=== PATIENT | female | born 1935 | race Caucasian/White ===

== ENCOUNTER 2016-08-31 14:38 | Inpatient (IN) | payer OTHER ==
[~2016-08-31] VITALS: Ht 167.6 cm; Wt 103.5 kg
[~2016-08-31 14:38] MED LIST: ACTOS15 MG PO; ACTOS30 MG PO; ADVAIR 250/501 DISK IH; ASPIRIN325 MG PO; ASTEPRO 0.15%30 ML BOTH NARES; Ambien PO; Astelin, Astepro 0.1 BOTH NARES; BENAZEPRIL HCL20 MG PO; CARDIZEM120 MG PO; CARDIZEM30 MG PO; CEFTIN250 MG PO; CIPRO500 MG PO; COLACE100 MG PO; CYMBALTA60 MG PO; Catapres PO; Cortaid,Hytone 1% Cr TP; Cymbalta PO; DAILY VALUE1 EACH PO; DILTIAZEM 24HR240 MG PO; DITROPAN XL5 MG PO; DOCUSATE SODIU100 MG PO; Ditropan PO; DuoNeb IH; ENABLEX7.5 MG PO; FUROSEMIDE20 MG PO; GLUCAGEN1 MG IM/SC; KLOR-CON M2020 MEQ PO; LANTUS 10100 UNITS/ SC; LANTUS 3 M100 UNITS/ SC; LANTUS 3 M100 UNITS1 SC; LASIX20 MG PO; LIDODERM 5% P1 PATCH TD; LOPRESSOR100 M1 PO; LOPRESSOR25 MG PO; LOTENSIN20 M1 PO; LOTENSIN20 MG PO; Lasix PO; Levaquin PO; Lopressor PO; Lotensin PO; METOPROLOL TAR100 MG PO; METOPROLOL TART50 MG PO; MEVACOR40 MG PO; MIRALAX255 GM PO; Milk Of Magnesia,MOM PO; NEXIUM40 MG PO; NORCO 5/3251 TABLET PO; NOVOLOG 10100 UNITS/ SC; NOVOLOG PE100 UNITS/ SC; NYSTATIN15 GM TP; Nitrostat,NitroQuick SL; Normodyne,Trandate PO; Norvasc PO; OMEPRAZOLE40 M1 PO; PROAIR HFA8.5 GM IH; PROAIR RESPICL90 MCG PO; PROCTOSOL-HC28.35 GM PR; Pradaxa PO; Pravachol PO; Preservision AREDS S PO; SENOKOT S,PE1 TABLET PO; SYMBICORT60 INHALA1 IH; Symbicort 80-4.5 mcg IH; TAZTIA XT180 M1 PO; THERAGRAN-M AD1 EAC2 PO; TOFRANIL25 MG PO; TYLENOL REGULA325 MG PO; Theragran-M,Centrum, PO; Tylenol Regular Stre PO; VESICARE5 MG PO; VITAMIN D1000 INTUN PO; ValTRex PO; Vitamin D PO; WELLBUTRIN XL150 MG PO; Wellbutrin XL PO; XARELTO15 MG PO; Xarelto PO; ZOFRAN ODT4 MG PO; Zocor PO
[2016-08-31 15:13] LABS: HEMATOCRIT 38.1 % (36.0-46.0); MCH 31.8 PG (29.0-34.0); MCHC 33.6 G/DL (30.0-36.0); MCV 94.8 FL (83-99); MEAN PLAT.VOLUME 10.2 uM^3 (9.5-12.4); PLATELET COUNT 221 K/uL (156-360); RBC DIS.WIDTH-CV 12.2 % (11.8-14.6); RBC DIS.WIDTH-SD 40.8 % (39-53); RED BLOOD COUNT 4.02 M/uL (3.80-5.20)
[2016-08-31 15:30] LABS: CHLORIDE 100 mEq/L (99-109); POTASSIUM 4.7 mEq/L (3.7-5.4); SODIUM 136 mEq/L (136-147)
[2016-08-31 15:31] LABS: GLUCOSE 254 mg/dL (70-99)
[2016-08-31 15:33] LABS: ANION GAP 13 MEQ/L (2-14)
[2016-08-31 15:35] LABS: GFR ESTIMATE (CALCULATED) 39 mL/min/; TROP-I INTERPRETATION POSITIVE
[2016-08-31 15:36] LABS: UREA NITROGEN (BUN) 20 mg/dL (9-23)
[2016-08-31 16:15] LABS: INTER. NORMALIZED RATIO 1.3
[2016-08-31] MEDS ORDERED: METOPROLOL SUC100 MG PO (17:17)
[2016-08-31] MEDS ORDERED: VITAMIN D31000 UNIT PO (17:19)
[2016-08-31] MEDS ORDERED: CLARINEX5 MG PO (17:19)
[2016-08-31] MEDS ORDERED: NEXIUM40 MG PO (17:20)
[2016-08-31] MEDS ORDERED: COLACE100 MG PO (17:20)
[2016-08-31 19:50] VITALS: BP 179/81
[2016-08-31 21:05] LABS: POINT-OF-CARE METER ID UU13113698
[2016-08-31 23:27] LABS: TROP-I INTERPRETATION POSITIVE
[2016-09-01 00:10] VITALS: BP 142/76
[2016-09-01 00:47] LABS: TROPONIN-I 1.61 ng/mL (0.0-0.30)
[2016-09-01 06:44] LABS: TROP-I INTERPRETATION POSITIVE
[2016-09-01 06:45] LABS: TROPONIN-I 1.76 ng/mL (0.0-0.30)
[2016-09-01 07:55] LABS: ANION GAP 13 MEQ/L (2-14); CHLORIDE 96 MEQ/L (99-109); GFR ESTIMATE (CALCULATED) 39 mL/min/; SAMPLE HEMOLYSIS CHECK 0; SAMPLE ICTERIC CHECK 0; SAMPLE LIPEMIA CHECK 0; SODIUM 139 MEQ/L (136-147); UREA NITROGEN (BUN) 22 mg/dL (9-23)
[2016-09-01 07:58] LABS: GLUCOSE 97 mg/dL (70-99); POTASSIUM 3.7 MEQ/L (3.7-5.4)
[2016-09-01 08:00] VITALS: BP 167/74
[2016-09-01 08:14] LABS: POINT-OF-CARE METER ID UU14174216; POINT-OF-CARE USER ID NUTSLF44
[2016-09-01 11:35] LABS: POINT-OF-CARE METER ID UU13113698; POINT-OF-CARE USER ID NUTSLF44
[2016-09-01 12:04] VITALS: BP 128/60
[2016-09-01 14:55] LABS: TROP-I INTERPRETATION POSITIVE
[2016-09-01 15:19] LABS: TROPONIN-I 1.26 ng/mL (0.0-0.30)
[2016-09-01 16:00] VITALS: BP 131/64
[2016-09-01 16:58] LABS: POINT-OF-CARE METER ID UU13113698; POINT-OF-CARE USER ID NUTSLF44
[2016-09-01 19:53] VITALS: BP 105/57
[2016-09-01 21:19] LABS: POINT-OF-CARE METER ID UU13113698
[2016-09-02 00:13] VITALS: BP 146/73
[2016-09-02 02:32] LABS: ADD MIUA? YES; BILIRUBIN NEGATIVE; BLOOD NEGATIVE; COLOR YELLOW ((YELLOW)); GLUCOSE (STRIP) NEGATIVE; KETONES NEGATIVE; LEUKOCYTES TRACE; NITRITE POSITIVE; PROTEIN (STRIP) NEGATIVE; UROBILINOGEN 0.2 MG/DL (0.2-1.0)
[2016-09-02 02:54] LABS: BACTERIA 4+; CASTS PRESENT /LPF; CRYSTALS NONE SEEN; EPITHELIAL CELLS RARE; MUCUS NONE SEEN; RED BLOOD CELLS NONE SEEN /HPF (0-5); WHITE BLOOD CELLS 0-5 /HPF (0-5)
[2016-09-02 03:32] VITALS: BP 127/71
[2016-09-02 07:55] LABS: POINT-OF-CARE METER ID UU13113698
[2016-09-02 09:11] VITALS: BP 136/76
[2016-09-02 09:26] LABS: HEMATOCRIT 35.3 % (36.0-46.0); MCH 31.5 PG (29.0-34.0); MCHC 32.9 G/DL (30.0-36.0); MCV 95.9 FL (83-99); MEAN PLAT.VOLUME 10.6 uM^3 (9.5-12.4); PLATELET COUNT 175 K/uL (156-360); RBC DIS.WIDTH-CV 12.6 % (11.8-14.6); RED BLOOD COUNT 3.68 M/uL (3.80-5.20); WHITE BLOOD COUNT 7.3 K/uL (4.1-10.2)
[2016-09-02 11:34] LABS: POINT-OF-CARE METER ID UU13113698
[2016-09-02 16:26] LABS: POINT-OF-CARE METER ID UU13113698
[2016-09-02 16:30] VITALS: BP 134/67
[2016-09-02 19:31] VITALS: BP 120/62
[2016-09-02 21:00] LABS: POINT-OF-CARE METER ID UU14174216
[2016-09-02 23:31] VITALS: BP 117/68
[2016-09-03 03:12] VITALS: BP 122/57
[2016-09-03 06:48] LABS: EOSINOPHIL (%) 2.6 % (0-5); EOSINOPHIL COUNT 0.2 K/uL (0-0.3); HEMATOCRIT 35.8 % (36.0-46.0); IMMATURE GRANULOCYTE (%) 0.1 % (0.0-0.7); LYMPHOCYTE COUNT 2.4 K/uL (1.0-2.8); MCH 30.9 PG (29.0-34.0); MCHC 32.4 G/DL (30.0-36.0); MCV 95.5 FL (83-99); MEAN PLAT.VOLUME 10.4 uM^3 (9.5-12.4); MONOCYTE (%) 9.7 % (3-12); MONOCYTE COUNT 0.7 K/uL (0-0.8); NEUTROPHIL (%) 52.8 % (45-76); NEUTROPHIL COUNT 3.7 K/uL (1.8-6.4); PLATELET COUNT 198 K/uL (156-360); RBC DIS.WIDTH-CV 12.8 % (11.8-14.6); RBC DIS.WIDTH-SD 44.7 % (39-53); RED BLOOD COUNT 3.75 M/uL (3.80-5.20)
[2016-09-03 07:40] LABS: ALKALINE PHOSPHATASE 49 IU/L (3-129); ANION GAP 10 MEQ/L (2-14); CHLORIDE 98 MEQ/L (99-109); GFR ESTIMATE (CALCULATED) 39 mL/min/; POTASSIUM 3.9 MEQ/L (3.7-5.4); SAMPLE HEMOLYSIS CHECK 0; SAMPLE ICTERIC CHECK 0; SAMPLE LIPEMIA CHECK 0; SODIUM 140 MEQ/L (136-147); TOTAL BILIRUBIN 0.7 MG/DL (0.0-1.0); UREA NITROGEN (BUN) 21 mg/dL (9-23)
[2016-09-03 07:51] LABS: GLUCOSE 62 mg/dL (70-99)
[2016-09-03] MEDS ORDERED: ASPIR-LOW81 MG PO (11:30)
[2016-09-03] MEDS ORDERED: CLOPIDOGREL75 MG PO (11:30)
[2016-09-03] MEDS ORDERED: IMDUR30 MG PO (11:30)
[2016-09-03] MEDS ORDERED: CEFTIN500 MG PO (11:30)
[2016-09-03] MEDS ORDERED: LASIX40 MG PO (11:31)
[2016-09-03 11:57] VITALS: BP 139/71
[2016-09-03 16:01] LABS: POINT-OF-CARE METER ID UU14174216
[2016-09-03 16:33] VITALS: BP 134/60
== END 2016-09-03 18:00 | disposition home health service (06) | DRG 280 ==
LOC: EME 14:38 → EDOF 17:10 → 4EAST 17:10
PROVIDERS: Hospitalist; Internal Medicine; Internal Medicine Cardiovascular Disease; Physician Assistant; Physician Assistant Medical
DX: I21.4 Non-ST elevation (NSTEMI) myocardial infarction (principal); J81.0 Acute pulmonary edema; N39.0 Urinary tract infection, site not specified; B96.20 Unspecified Escherichia coli [E. coli] as the cause of diseases classified elsewhere; J90 Pleural effusion, not elsewhere classified; I27.2 Other secondary pulmonary hypertension; I08.0 Rheumatic disorders of both mitral and aortic valves; I12.9 Hypertensive chronic kidney disease with stage 1 through stage 4 chronic kidney disease, or unspecified chronic kidney disease; N18.3 Chronic kidney disease, stage 3 (moderate); I48.2 Chronic atrial fibrillation; I25.10 Atherosclerotic heart disease of native coronary artery without angina pectoris; E11.9 Type 2 diabetes mellitus without complications; J44.9 Chronic obstructive pulmonary disease, unspecified; K21.9 Gastro-esophageal reflux disease without esophagitis; G89.29 Other chronic pain; Z95.0 Presence of cardiac pacemaker; E66.9 Obesity, unspecified; Z68.37 Body mass index [BMI] 37.0-37.9, adult; Z79.01 Long term (current) use of anticoagulants; Z79.4 Long term (current) use of insulin
CPT/HCPCS: 71020; 80048; 80053; 81003; 82948; 83880; 84484; 85025; 85027; 85610; 85730; 87077; 87086; 87186; 93005; 94640; 94640 76; 94799; 99202; 99281; 99285; J0696; J1815; J1940; J7050

== ENCOUNTER 2016-10-14 07:03 | Day surgery (SDC) | payer OTHER ==
[~2016-10-14] VITALS: Ht 167.6 cm; Wt 101.1 kg
[~2016-10-14 07:03] MED LIST changes: +ASPIR-LOW81 MG PO; +CEFTIN500 MG PO; +CLARINEX5 MG PO; +CLOPIDOGREL75 MG PO; +IMDUR30 MG PO; +LASIX40 MG PO; +METOPROLOL SUC100 MG PO; +VITAMIN D31000 UNIT PO
[2016-10-14 07:33] VITALS: BP 152/72
[2016-10-14 07:40] LABS: POINT-OF-CARE METER ID UU14174212
[2016-10-14 10:31] LABS: POINT-OF-CARE METER ID UU13113675
[2016-10-14 10:55] VITALS: BP 140/55
== END 2016-10-14 11:57 | disposition home or self-care (01) ==
LOC: SDC 07:03
PROVIDERS: Internal Medicine
DX: H43.11 Vitreous hemorrhage, right eye (principal); H33.41 Traction detachment of retina, right eye; E11.3591 Type 2 diabetes mellitus with proliferative diabetic retinopathy without macular edema, right eye; N18.9 Chronic kidney disease, unspecified; I12.9 Hypertensive chronic kidney disease with stage 1 through stage 4 chronic kidney disease, or unspecified chronic kidney disease; E11.22 Type 2 diabetes mellitus with diabetic chronic kidney disease; K21.9 Gastro-esophageal reflux disease without esophagitis; G47.33 Obstructive sleep apnea (adult) (pediatric)
CPT/HCPCS: 82948; J0690; J2405; J3300

== ENCOUNTER 2017-01-01 14:19 | Inpatient (IN) | payer OTHER ==
[~2017-01-01] VITALS: Ht 167.6 cm; Wt 100.3 kg
[2017-01-01 14:54] LABS: HEMATOCRIT 40.8 % (36.0-46.0); MCH 30.4 PG (29.0-34.0); MCHC 32.8 G/DL (30.0-36.0); MCV 92.5 FL (83-99); MEAN PLAT.VOLUME 9.9 uM^3 (9.5-12.4); PLATELET COUNT 167 K/uL (156-360); RBC DIS.WIDTH-CV 12.4 % (11.8-14.6); RBC DIS.WIDTH-SD 42.2 % (39-53); RED BLOOD COUNT 4.41 M/uL (3.80-5.20); WHITE BLOOD COUNT 7.1 K/uL (4.1-10.2)
[2017-01-01 15:03] LABS: CHLORIDE 101 mEq/L (99-109); POTASSIUM 3.5 mEq/L (3.7-5.4); SODIUM 140 mEq/L (136-147)
[2017-01-01 15:05] LABS: GLUCOSE 78 mg/dL (70-99)
[2017-01-01 15:07] LABS: ANION GAP 9 MEQ/L (2-14)
[2017-01-01 15:09] LABS: GFR ESTIMATE (CALCULATED) 57 mL/min/; INTER. NORMALIZED RATIO 1.1; PROTHROMBIN TIME 11.1 (9.2-11.2); PTT 28.5 (25-32); UREA NITROGEN (BUN) 23 mg/dL (9-23)
[2017-01-01 15:15] LABS: TROP-I INTERPRETATION NEGATIVE; TROPONIN-I 0.02 ng/mL (0.0-0.30)
[2017-01-01 15:25] LABS: DIGOXIN < 0.3 ng/mL (0.8-2.0)
[2017-01-01] MEDS ORDERED: ADULT LOW DOSE81 M1 PO (16:42)
[2017-01-01] MEDS ORDERED: LASIX40 MG PO (16:44)
[2017-01-01] MEDS ORDERED: TRESIBA FL100 UNIT/1 SC (16:45)
[2017-01-01] MEDS ORDERED: SYSTANE ULTRA 015 ML BOTH EYES (16:46)
[2017-01-01 16:55] LABS: TROP-I INTERPRETATION NEGATIVE; TROPONIN-I 0.02 ng/mL (0.0-0.30)
[2017-01-01 19:13] LABS: MAGNESIUM 1.7 mg/dl (1.3-2.7)
[2017-01-01 19:41] VITALS: BP 174/86
[2017-01-02 00:57] LABS: POINT-OF-CARE METER ID UU14162513
[2017-01-02 01:01] LABS: TROP-I INTERPRETATION NEGATIVE; TROPONIN-I 0.02 ng/mL (0.0-0.30)
[2017-01-02 04:00] VITALS: BP 178/79
[2017-01-02 05:30] LABS: TROP-I INTERPRETATION NEGATIVE; TROPONIN-I 0.03 ng/mL (0.0-0.30)
[2017-01-02 08:18] VITALS: BP 139/65
[2017-01-02 08:52] LABS: POINT-OF-CARE METER ID UU14162513
[2017-01-02 12:21] VITALS: BP 152/72
[2017-01-02 12:37] LABS: POINT-OF-CARE METER ID UU14162513
[2017-01-02 15:20] VITALS: BP 164/77
[2017-01-02] MEDS ORDERED: XARELTO20 MG PO (16:57)
[2017-01-02] MEDS ORDERED: CARDIZEM CD360 MG PO (16:59)
[2017-01-02 17:16] LABS: POINT-OF-CARE METER ID UU14162513
== END 2017-01-02 18:38 | disposition home or self-care (01) | DRG 301 ==
LOC: EME 14:19 → 5WEST 17:06 → EDOF 17:06 → 5WEST 19:24
PROVIDERS: Hospitalist; Physician Assistant
DX: I73.9 Peripheral vascular disease, unspecified (principal); I70.92 Chronic total occlusion of artery of the extremities; I48.2 Chronic atrial fibrillation; E11.9 Type 2 diabetes mellitus without complications; I25.10 Atherosclerotic heart disease of native coronary artery without angina pectoris; I70.90 Unspecified atherosclerosis; I10 Essential (primary) hypertension; E78.5 Hyperlipidemia, unspecified; I25.2 Old myocardial infarction; Z88.2 Allergy status to sulfonamides; Z79.82 Long term (current) use of aspirin; Z79.4 Long term (current) use of insulin; Z91.048 Other nonmedicinal substance allergy status; I49.5 Sick sinus syndrome
CPT/HCPCS: 71020; 80048; 80162; 82948; 83735; 84443; 84484; 85027; 85610; 85730; 93005; 93925; 94640; 94640 76; G0378; J1815; J3480

== ENCOUNTER 2017-10-18 11:23 | Observation (INO) | payer OTHER ==
[~2017-10-18] VITALS: Ht 162.6 cm; Wt 97.3 kg
[~2017-10-18 11:23] MED LIST changes: +ADULT LOW DOSE81 M1 PO; +CARDIZEM CD360 MG PO; -METOPROLOL SUC100 MG PO; +SYSTANE ULTRA 015 ML BOTH EYES; +TRESIBA FL100 UNIT/1 SC; +XARELTO20 MG PO
[2017-10-18 12:26] LABS: BASOPHIL (%) 0.3 % (0-1); EOSINOPHIL (%) 0.5 % (0-5); EOSINOPHIL COUNT 0.1 K/uL (0-0.3); HEMATOCRIT 38.1 % (36.0-46.0); IMMATURE GRANULOCYTE (%) 0.4 % (0.0-0.7); LYMPHOCYTE (%) 22.9 % (15-42); LYMPHOCYTE COUNT 2.7 K/uL (1.0-2.8); MCH 31.9 PG (29.0-34.0); MCHC 34.1 G/DL (30.0-36.0); MCV 93.6 FL (83-99); MONOCYTE (%) 6.3 % (3-12); MONOCYTE COUNT 0.7 K/uL (0-0.8); NEUTROPHIL (%) 69.6 % (45-76); PLATELET COUNT 230 K/uL (156-360); RBC DIS.WIDTH-CV 11.9 % (11.8-14.6); RBC DIS.WIDTH-SD 40.9 % (39-53); RED BLOOD COUNT 4.07 M/uL (3.80-5.20); WHITE BLOOD COUNT 11.6 K/uL (4.1-10.2)
[2017-10-18 12:31] LABS: INTER. NORMALIZED RATIO 1.5
[2017-10-18 12:34] LABS: PTT 34.8 SEC (25-37)
[2017-10-18 12:41] LABS: CHLORIDE 99 MEQ/L (99-109); POTASSIUM 5.1 MEQ/L (3.7-5.4); SODIUM 134 MEQ/L (136-147); TOTAL BILIRUBIN 0.7 MG/DL (0.0-1.0)
[2017-10-18 12:47] LABS: ALKALINE PHOSPHATASE 39 IU/L (3-129); ALT (GPT) 8 IU/L (3-49); AST (GOT) 15 IU/L (2-34); CREATININE 1.8 MG/DL (0.6-1.3); GFR ESTIMATE (CALCULATED) 29 mL/min/; GLUCOSE 100 mg/dL (70-99); TOTAL PROTEIN 6.6 G/DL (6.4-8.3); UREA NITROGEN (BUN) 45 mg/dL (9-23)
[2017-10-18 12:51] LABS: TROP-I INTERPRETATION NEGATIVE; TROPONIN-I 0.02 ng/mL (0.0-0.30)
[2017-10-18] MEDS ORDERED: NOVOLOG PE100 UNITS/ SC (14:36)
[2017-10-18] MEDS ORDERED: LOTENSIN40 MG PO (14:38)
[2017-10-18] MEDS ORDERED: XARELTO15 MG PO (14:40)
[2017-10-18] MEDS ORDERED: CILOSTAZOL50 MG PO (14:41)
[2017-10-18] MEDS ORDERED: DIGOX125 MCG PO (14:41)
[2017-10-18] MEDS ORDERED: ALDACTONE25 MG PO (14:41)
[2017-10-18 15:34] LABS: DIGOXIN 0.7 ng/mL (0.8-2.0)
[2017-10-18 15:51] VITALS: BP 180/74
[2017-10-18 17:30] VITALS: BP 135/64
[2017-10-18 19:38] VITALS: BP 123/58
[2017-10-18 20:24] LABS: TROP-I INTERPRETATION NEGATIVE; TROPONIN-I 0.02 ng/mL (0.0-0.30)
[2017-10-18 23:38] VITALS: BP 140/63
[2017-10-19] VITALS (7 sets, daily range): BP systolic 114–166; BP diastolic 56–85
[2017-10-19 06:32] LABS: HEMATOCRIT 38.2 % (36.0-46.0); HEMOGLOBIN 12.5 G/DL (11.9-15.5); MCH 31.3 PG (29.0-34.0); MCHC 32.7 G/DL (30.0-36.0); MCV 95.5 FL (83-99); PLATELET COUNT 200 K/uL (156-360); RBC DIS.WIDTH-SD 41.7 % (39-53); WHITE BLOOD COUNT 7.7 K/uL (4.1-10.2)
[2017-10-19 07:04] LABS: CHLORIDE 104 MEQ/L (99-109); CREATININE 1.7 MG/DL (0.6-1.3); GFR ESTIMATE (CALCULATED) 31 mL/min/; GLUCOSE 105 mg/dL (70-99); POTASSIUM 4.7 MEQ/L (3.7-5.4); SODIUM 140 MEQ/L (136-147); UREA NITROGEN (BUN) 39 mg/dL (9-23)
== END 2017-10-19 17:15 | disposition home or self-care (01) ==
LOC: EME 11:23 → EDOF 13:46 → ENRESERV 13:48 → EDOF 14:06 → ENRESERV 14:37 → 5WEST 15:29
PROVIDERS: Emergency Medicine; Hospitalist; Physician Assistant Medical
PROC: 4B02XSZ Measurement of Cardiac Pacemaker, External Approach (ICD-10-PCS; principal; 2017-10-18)
DX: R55 Syncope and collapse (principal); N17.9 Acute kidney failure, unspecified; I12.9 Hypertensive chronic kidney disease with stage 1 through stage 4 chronic kidney disease, or unspecified chronic kidney disease; N18.4 Chronic kidney disease, stage 4 (severe); I48.2 Chronic atrial fibrillation; E11.22 Type 2 diabetes mellitus with diabetic chronic kidney disease; I49.5 Sick sinus syndrome; Z95.0 Presence of cardiac pacemaker; I25.10 Atherosclerotic heart disease of native coronary artery without angina pectoris; E78.5 Hyperlipidemia, unspecified; R53.1 Weakness; R11.0 Nausea; Z83.3 Family history of diabetes mellitus; Z88.2 Allergy status to sulfonamides; Z88.8 Allergy status to other drugs, medicaments and biological substances; Z79.82 Long term (current) use of aspirin
CPT/HCPCS: 70450; 71046; 73030; 73502; 80048; 80053; 80162; 81003; 82948; 84484; 85025; 85027; 85610; 85730; 93005; 94640; 94640 76; 99202; 99281; 99285; G0378; G8987 GO CI; G8988 GO CH; G8989 GO CI; J1815; J7030